=== PATIENT | male | born 1965 | race Caucasian/White ===

== ENCOUNTER → 2017-08-16 | Outpatient (CLI) | payer OTHER | LOC: M.ULTRA 12:56 | DX: R59.1 Generalized enlarged lymph nodes (principal) ==

== ENCOUNTER → 2017-08-22 | Outpatient (CLI) | payer OTHER | LOC: M.CT 16:33 | DX: J43.9 Emphysema, unspecified (principal); D72.829 Elevated white blood cell count, unspecified; M54.2 Cervicalgia; R22.1 Localized swelling, mass and lump, neck ==

== ENCOUNTER → 2017-08-29 | Outpatient (CLI) | payer OTHER ==
--- NOTE | 2017-09-12 10:57 | S ---
[place] [address] SURGICAL PATH RPT PROCEDURE Name: RAMIRO CRUZ Room: [facility].#: [id number] Admission: 08/29/17 Date of : 61 Discharge: Report #: [id number] Path Case #: [id number] PATHOLOGY REPORT COLLECTION DATE: 08/29/2017 RECEIVED DATE: 08/30/2017 SUBMITTING PHYS: Dr. Higinio Crawford OTHER PHYS: Dr. Maggi Hyde, [facility] ADDENDUM REPORT (Order Date: 09/11/2017 15:50) ADDENDUM COMMENT: An addendum is issued to relay additional immunohistochemical stain results. Immunohistochemical stain with appropriate controls show: (Block A1) CD23 - Highlights follicular dendritic meshworks The originally rendered diagnosis remains unchanged. (JMQ:junaid; 09/11/2017) Professional services performed under supervision of [facility] Corporate Strategist at [address] [address]. Technical services performed by [facility] under supervision of a [facility] Corporate Strategist at [address] [place] [address], [address] [place] [address]. ELECTRONICALLY SIGNED BY: Stephanie Og M.D. DATE/TIME:09/12/2017 10:56 SPECIMEN(S) RECEIVED: A.Right neck lymph node * * * * * * * * * * * * FINAL DIAGNOSIS: Lymph node, cervical, needle core biopsy: - Lymphoid tissue with increased eosinophilic infiltrates, occasional karyorrhectic debris and mild acute lymphadenitis (please see comment). COMMENT: Examination of the cervical lymph node biopsy shows few reactive follicles, increased eosinophilic infiltrates, occasional karyorrhectic debris and mild acute lymphadenitis. Definite Tiago-Kameron cells, metastatic carcinoma, or granulomas are not identified. Immunophenotypic studies by flow cytometry do not show evidence of B or T cell lymphoma. To confirm flow cytometric findings and characterize the lymphoid cells in a tissue architectural context, immunohistochemical stains are performed with appropriate controls: (block A1) [place] [address] SURGICAL PATH RPT PROCEDURE Name: RAMIRO CRUZ Room: [facility]#: [id number] Admission: 08/29/17 Date of : 61 Discharge: Report #: [id number] Path Case #: [id number] CD20: highlights B lymphoid cells within germinal centers and mantle zones CD3: highlights predominant T lymphoid cells CD5: highlights predominant T lymphoid cells CD10: highlights occasional B lymphoid cells within few germinal centers BCL-6: highlights occasional B lymphoid cells within few germinal centers BCL-2: highlights B and T lymphoid cells with lack of staining within germinal centers BCL-1: negative CD30: rare non-specific positive staining of immunoblasts Based on the morphology, immunohistochemical staining pattern, and flow cytometry, these findings suggest benign a reactive lymph node. However, it should be noted partial involved lymph node by malignancy or Hodgkin lymphoma in a background of reactive hyperplasia cannot be totally excluded due to sampling artifact. Excision of the lymph node is recommended if clinically suspicious. Co-reviewed: Dr. Olivia Davila (JMQ:mgr; 09/03/2017) PATHOLOGIST: Stephanie Og M.D. REPORT ELECTRONICALLY SIGNED BY: Stephanie Og M.D. DATE/TIME: 09/06/2017 08:36 * * * * * * * * * * * * MICROSCOPIC DESCRIPTION: [place] [facility] [address] [place] [address], [address], [place], [address], on case [id number], labeled with their number [id number], dated 08/31/2017. Flow Cytometry: Hematologic Neoplasia Assessment Clinical History Cervical adenopathy Indication for Study Evaluation for lymphadenopathy Specimen Lymph Node, Right Neck Viability 74% (7AAD exclusion) Interpretation Lymph Node, Right Neck: - No evidence of a B-cell or a T-cell lymphoma. See comments. Comments Hodgkin lymphoma, some large cell lymphomas and some peripheral T-cell lymphomas cannot be categorically excluded by flow cytometric analysis. Correlation with the morphologic findings is recommended. Populations Analyzed Lymphocytes: 55% There [place] [address] SURGICAL PATH RPT PROCEDURE Name: RAMIRO CRUZ [id number] Admission: 08/29/17 Date of : 61 Discharge: Report #: [id number] Path Case #: [id number] lymphocytes (5% of total cells), T-lymphocytes (50% of total cells), and NK-cells (0.4% of total cells). No gu-T-cell antigen Deletion or B-cell surface light chain restriction is detected. CD4:CD8 ratio is normal at 4:1. Granulocytes: 1% Myeloid cells comprise 1% of total cells and are mature (CD10+/CD11b+). CD45 Negative 44% No significant reactivity with the markers tested (may represent degenerated Events/Debris: cells, unlysed red blood cells, debris, etc.) Morphologic Evaluation A slide was reviewed for quality assurance coordinator purposes only. Specimen Description Cell Yield: 0.77x10^6 Reagent(s) Used CD2, CD3, CD4, CD5, CD7, CD8, CD10, CD11b, CD19, CD20, CD23, CD30, CD38, CD43, CD45, CD56, CD57, FMC-7, HLA-DR, kappa, lambda at [facility]. Brent Saravia MD Hematopathologist Intended Use Flow cytometry is optimally used to immunophenotypically characterize abnormal populations when they are detected. Negative flow cytometry results do not exclude lymphoma or neoplasia. Possible false negative flow cytometry results may occur in, but are not limited to, the following: neoplastic cells in Hodgkin lymphoma are not typically adequately represented by routine clinical flow cytometry; neoplastic cells may be lost or inadequately represented due to degeneration, sample processing, sampling artifact, or patchy involvement; plasma cells are typically underrepresented by flow cytometry; immature cells/blasts may be underrepresented due to hemodilution; myeloproliferative disorders and low grade myelodysplasia may not have immunophenotypic abnormalities or increased blasts. Correlation with all available clinical, laboratory, and morphologic data is always necessary to assess for the possibility of false negative flow cytometry results and to establish a diagnosis. Each marker in this analysis was used to assess for potential antigenic abnormalities or to evaluate detected abnormalities. Disclaimer(s) This test was performed at [facility]. at [address] [place] [address], [place], [address] - Corporate Strategist: Amol Shepard MD. [facility] is a business unit of [facility] [employer] [facility] a wholly-owned subsidiary of [employer]. Any image or images that accompany this report are customer counter representative images only and should not be used to [place] a [place] [address] SURGICAL PATH RPT PROCEDURE Name: RAMIRO CRUZ Room: [facility]#: [id number] Admission: 08/29/17 Date of : 61 Discharge: Report #: [id number] Path Case #: [id number] This test was developed and its performance characteristics determined by [facility]. It has not been cleared or approved by the Food and Drug Administration (FDA). The FDA has determined that such clearance or approval is not necessary. For inquiries, the physician may contact Lab: [phone] A complete copy of the report is on file. Professional services performed by [employer] at [address], [place] [address]. Technical services performed by [employer], [employer] at [address], [place] [address]. GROSS PATHOLOGY: Received in formalin labeled "Ramiro Bhatti, right neck lymph node," are six distinct needle cores of patterson soft tissue ranging from 0.5 to 1.2 cm in length, which are submitted entirely in cassette A1. Also received in RPMI solution labeled "Terrie Cruz, right neck lymph node," are three distinct needle cores of patterson soft tissue ranging from 0.5 to 0.8 cm in length. This container is forwarded in its entirety to an outside laboratory for flow cytometry studies. (DAC; 08/30/2017) CLINICAL HISTORY: Cervical adenopathy INITIAL CPT CODE(S): A; 81613(23), 37285, 45275, 72534, 04872, 17287, 57699, 46698, 89428, 77205, 24788, 26566, 66774 Professional services performed by [facility] at [facility], [address] [place] [address]. Technical services performed by [facility] at [address] [place] [address], [address], [place] [address]. [facility] [address] [place] [address] PHONE: [phone] DIRECTOR: Geovanni Macias M.D. * * * END OF REPORT * * *
== END | disposition home or self-care (01) ==
LOC: M.ULTRA 08:14
DX: R59.0 Localized enlarged lymph nodes (principal)

== ENCOUNTER → 2017-09-07 | Outpatient (CLI) | payer OTHER | LOC: M.RAD 16:58 | DX: S60.451A Superficial foreign body of left index finger, initial encounter (principal); X58.XXXA Exposure to other specified factors, initial encounter; Y93.89 Activity, other specified; Y92.89 Other specified places as the place of occurrence of the external cause; Y99.8 Other external cause status ==

== ENCOUNTER → 2017-10-10 | Outpatient (CLI) | payer OTHER | LOC: M.RAD 16:53 | DX: R91.8 Other nonspecific abnormal finding of lung field (principal); J12.9 Viral pneumonia, unspecified; D72.1 Eosinophilia ==

== ENCOUNTER 2020-09-10 08:53 | Emergency (ER) | payer OTHER ==
[~2020-09-10] VITALS: Ht 172.7 cm; Wt 77.1 kg
[2020-09-10] MEDS ORDERED: LISINOPRIL20 MG PO (09:00)
[2020-09-10 09:16] LABS: ABSOLUTE BASOPHILS 0.1 thou/uL (0.0-0.2); ABSOLUTE EOSINOPHILS 0.4 thou/uL (0.0-0.7); ABSOLUTE LYMPHOCYTES 1.3 thou/uL (0.8-5.3); ABSOLUTE MONOCYTES 1.4 thou/uL (0.0-1.2); ABSOLUTE NEUTROPHILS 13.7 thou/uL (1.6-8.1); BASOPHILS 0.6 %; EOSINOPHILS 2.5 %; HEMATOCRIT 50.1 % (42.0-52.0); HEMOGLOBIN 17.3 gm/dL (14.0-18.0); MCH 33.5 pg (26.0-34.0); MCHC 34.5 g/dL (28.0-37.0); MONOCYTES 8.2 %; NUCLEATED RBCS 0 /100WBC; PLATELET COUNT* 277 thou/uL (150-400); POLYS 80.7 %; RBC 5.16 mil/uL (4.50-6.00); RDW-CV 12.1 % (10.5-14.5); WBC 16.9 thou/uL (4.0-11.0)
[2020-09-10 09:35] LABS: TOTAL PROTEIN 8.2 g/dL (6.4-8.2)
--- NOTE | 2020-09-10 10:57 | EKG ---
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[place] : 1965 Requested By: Xander Brown Order Number: [id number] MD: Ryan Melton Measurements Intervals [place] Rate: 92 P: 64 [place]: 142 QRS: 89 QRSD: 144 T: 25 QT: 359 QTc: 445 Interpretive Statements Sinus rhythm Right bundle branch block Baseline wander in lead(s) II,III,aVR,aVF,V2 No previous ECG available for comparison Electronically Signed On 09-10-2020 10:57:43 CDT by Ryan Melton [email or web address] <ELECTRONICALLY SIGNED> By: Ryan Melton MD, [facility] 09/10/20 [phone] Ryan Melton MD, [facility] /EPI
[2020-09-10] MEDS ORDERED: DOXYCYCLINE 10100 M2 PO (11:41)
[2020-09-10 11:54] VITALS: BP 142/83
== END 2020-09-10 11:55 | disposition home or self-care (01) ==
LOC: M.ERS 08:53
PROVIDERS: Emergency Medicine Emergency Medical Services
DX: J18.9 Pneumonia, unspecified organism (principal); Z20.822 Contact with and (suspected) exposure to COVID-19; I10 Essential (primary) hypertension; Z79.899 Other long term (current) drug therapy

== ENCOUNTER → 2020-09-22 | Outpatient (CLI) | payer OTHER ==
[~2020-09-22] MED LIST: DOXYCYCLINE 10100 M2 PO; LISINOPRIL20 MG PO
--- NOTE | 2020-09-22 16:31 | EXE ---
[place] [address] STRESS ECHOCARDIOGRAM Name: RAMIRO NAVA Room: [facility]#: [id number] Admission: 09/22/20 Attend Phys: Maggi Christy DO Discharge: Date of : 61 Date of Service: 09/22/20 1631 Report #: [id number] THIS REPORT FOR: cc: Maggi Christy Maggie M. DO Biggs, F. Douglas MD [facility] ~ APPROVED REPORT Study performed: 09/22/2020 15:31:04 Exam: Dobutamine Stress Echo Indication: Chest pain , Dyspnea , Hypertension Patient Location: Out-Patient Stress Nurse: Yolanda Zamora RN Supervising Physician: Nirmal Donis MD Ht: 5 ft 8 in HR: 106 bpm BP: 149/85 mmHg Medical History Cardiac Risk Factors: Age, , HTN, FHX of CAD, Tobacco History (Current/Recent) Procedure The patient underwent a Pharmacological Stress Test using Dobutamine. Blood pressure, heart rate, and EKG were monitored. An Echocardiogram was performed by cephalometric technician in four stages in quad fashion. At peak stress, four selected images were obtained and placed side by side with resting images for comparison. Stress Test Details Stress Test: Pharmacological Stress Test using Dobutamine. Reason for pharmacologic stress test: physical limitation. HR Resting HR: 106 bpm Max Heart Rate (APMHR): 163 bpm Max HR Achieved: 148 bpm Target HR (85% APMHR): 138 bpm % of APMHR: 90 Recovery HR: 98 bpm HR response to stress: Normal HR response to stress BP Resting BP: 149/[place] [address] STRESS ECHOCARDIOGRAM Name: RAMIRO NAVA Room: [facility]#: [id number] Admission: 09/22/20 Attend Phys: Maggi Christy DO Discharge: Date of : 61 Date of Service: 09/22/20 1631 Report #: [id number] Max BP: 160/65 mmHg Recovery BP: 142/72 mmHg BP response to stress: Normal blood pressure response to stress. ECG Resting ECG: Sinus Rhythm, RBBB Stress ECG: Sinus tachycardia, RBBB ST Change: None Arrhythmia: None Recovery ECG: Sinus tachycardia, RBBB Recovery ST Change: None Recovery Arrhythmia: None Clinical Reason for Termination: Completed protocol Stress Symptoms: None Stress ECG Conclusion Clinical: Non-ischemic ECG: Non-ischemic Normal hemodynamic response to pharmacologic stress. Normal submaximal dobutamine EKG stress test. Pre-Stress Echo The resting Echocardiogram showed normal left ventricular contractility with an estimated Ejection Fraction of about 55-60%. The resting echocardiogram demonstrated normal wall motion in all wall segments. Normal wall motion in all segments on baseline images. Post-Stress Echo The stress Echocardiogram showed normal left ventricular contractility with an estimated Ejection Fraction of about >70%. Compared to rest, there were no stress-induced wall motion abnormalities. Normal augmentation of wall motion in all segments on post stress images. Clinical No clinical or ECG evidence for ischemia. Conclusion Clinical Response: Non-ischemic Exercise Capacity: Not assessed Stress ECG Response: Non-ischemic Stress Echo Images: [place] [address] STRESS ECHOCARDIOGRAM Name: RAMIRO NAVA Room: [facility]#: [id number] Admission: 09/22/20 Attend Phys: Maggi Christy DO Discharge: Date of : 61 Date of Service: 09/22/20 163 Report #: [id number] The left ventricle is normal in size and wall thickness in both the rest and stress images. Normal dobutamine stress echo. No evidence of ischemia. This is a low risk study Other Information Study Quality: Good <Conclusion> The left ventricle is normal in size and wall thickness in both the rest and stress images. Normal dobutamine stress echo. No evidence of ischemia. This is a low risk study <ELECTRONICALLY SIGNED> By: Dionicio Donis MD, [facility] 09/22/20 163 30 1631 Dionicio Donis MD, FACC /INF
== END ==
LOC: M.CRD 14:28
PROVIDERS: ATTEND Family Medicine
DX: I10 Essential (primary) hypertension (principal)